=== PATIENT | female | born 1960 | race Caucasian/White ===

== ENCOUNTER 2017-10-12 13:09 | Emergency (ER) | payer BC ==
[2017-10-12 14:12] VITALS: BP 125/81
--- NOTE | 2017-10-12 14:51 | UC ---
Knee Pain HPI - HPI Summary HPI Summary: 57 y/o female presents to the urgent care c/o Left knee pain around the medial aspect s/p bending yesterday at 1500Pm. Pt report she was helping her grandson w/ her shoe and bent and when she she stood up she felt a "pop" and pain was elicited. Pt applied ice, and took 600mg PO of Ibuprofen PO to alleviate symptoms. Pt has not taking anything today for pain. She is walking w/ limping. Pt denies Hx of injury to her left knee, calf pain, numbness or tingling sensation, abdominal pain, SOB, chest pain, N/v/D - History of Current Complaint Chief Complaint: UCLowerExtremity Stated Complaint: KNEE INJURY Time Seen by Provider: 10/12/17 14:49 Hx Obtained From: Patient ?: No - menopausal Onset/Duration: Sudden Onset, Lasting Days - 1 day, Still Present, Worse Since - today Severity Initially: Moderate Severity Currently: Moderate Pain Intensity: 8 - movement Pain Scale Used: 0-10 Numeric Character: Sharp - w/ movement Aggravating Factor(s): Movement, Weight Bearing, Prolonged Standing, Stairs Alleviating Factor(s): Rest, Cold, OTC Meds Associated Signs And Symptoms: Positive: Swelling - medial aspect. Negative: Bruising, Fever, Weakness, Numbness, Tingling Able to Bear Weight: Yes - Risk Factors Septic Arthritis Risk Factor: Negative Gout Risk Factor: Negative - Allergies/Home Medications Allergies/Adverse Reactions: Allergies Allergy/AdvReac Type Severity Reaction Status Date / Time metronidazole [From Flagyl] Allergy See Comment Verified 10/12/17 14:14 PMH/Surg Hx/FS Hx/Imm Hx Previously Healthy: Yes - Pt denies PMHX - Surgical History Surgical History: Yes Surgery Procedure, Year, and Place: 1979, 1983, 1986 csections,. 2001; Broken RIGHT arm; repair. R wrist surgery - Family History Known Family History: Positive: None - Pt denies FMHX - Social History Occupation: Employed Full-time Lives: With Family Alcohol Use: Weekly Substance Use Type: None Smoking Status (MU): Never Smoked Tobacco Amount Used/How Often: TRIED MAYBE 1 CIGARETTE Have You Smoked in the Last Year: No Review of Systems Constitutional: Negative Skin: Negative Eyes: Negative ENT: Negative Respiratory: Negative Cardiovascular: Negative Gastrointestinal: Negative Genitourinary: Negative Motor: Negative Neurovascular: Negative Musculoskeletal: Decreased ROM - left knee, Other: - left knee pain and swelling s/p injury Neurological: Negative Psychological: Negative Is Patient Immunocompromised?: No All Other Systems Reviewed And Are Negative: Yes Physical Exam - Summary Physical Exam Summary: Vital Signs Reviewed: Yes General: well developed, well nourished female sitting in the examining table w/ o any apparent distress Eyes: Positive: Conjunctiva Clear - PERRLA, EOMI, fundi grossly normal ENT: Positive: Normal ENT inspection, Hearing grossly normal, Pharynx normal, TMs normal Neck: Positive: Supple, Nontender, No Lymphadenopathy Respiratory: Positive: Chest nontender, Lungs clear, Normal breath sounds, No respiratory distress Cardiovascular: Positive: RRR, No Murmur, Pulses Normal, Brisk Capillary Refill Abdomen Description: Positive: Nontender, No Organomegaly, Soft. Negative: CVA Tenderness (R), CVA Tenderness (L) Bowel Sounds: Positive: Present Musculoskeletal: Positive: Strength Intact, No Edema, LF Knee: Pt is able to bear weight and ambulate with limping. No surface trauma, mild soft tissue swelling over the medial aspect of the left knee, no obvious effusion. No overlying erythema or warmth. The L knee is without obvious asymmetry or deformity when compared with the R knee. Decreased ROM of LF knee due to pain. No tenderness to palpation of the patella, no effusion or ballottement. Point tenderness over the infrapatellar tendon. Point tenderness over the medial joint line, No tenderness over lateral tibial plateaus. No tenderness over the proximal fibular head, No tenderness, fullness or mass of the popliteal fossa. No quadriceps tenderness. No laxity of the ACL. PCL, MCL, or LCL. no collateral ligament laxity to valgus or varus stress. Negative Yaz/Drawer sign. Negative Taty. Distal motor and neurovascular status intact. Neurological Exam: Normal Psychological Exam: Normal Skin Exam: Normal Triage Information Reviewed: Yes Vital Signs: Initial Vital Signs Temp 99.4 F 10/12/17 14:07 Pulse 66 10/12/17 14:07 Resp 16 10/12/17 14:07 BP 125/81 10/12/17 14:07 Pulse Ox 100 10/12/17 14:07 Knee Pain Course/Dx - Course Course Of Treatment: 57 y/o female presents to the urgent care c/o Left knee pain around the medial aspect s/p bending yesterday at 1500Pm. Pt report she was helping her grandson w/ her shoe and bent and when she she stood up she felt a "pop" and pain was elicited. Pt applied ice, and took 600mg PO of Ibuprofen PO to alleviate symptoms. Pt has not taking anything today for pain. She is walking w/ limping. Pt denies Hx of injury to her left knee, calf pain, numbness or tingling sensation, abdominal pain, SOB, chest pain, N/V/D. Hx obtained. LF knee X-ray ordered. Impression:No acute osseous injury. Pt's knee immobilized w/ knee immobilizer for 1 week. Pt Advised RICE. Avoid strenuous exercise or standing for long period of time. Advised if not improvement of symptoms to f/u with Orthopedic Dr Douglas or PCP in 1 week for further evaluation and treatment. PT understood and agreed with D/C instructions.Pt left the clinic hemodynamically stable, A&OX3. - Differential Dx/Diagnosis Differential Diagnosis/HQI/PQRI: Contusion, DVT, Patellofemoral Syndrome, Sprain , Strain, Tendonitis Provider Diagnoses: 1- Acute left knee pain s/p injury Discharge - Sign-Out/Discharge Documenting (check all that apply): Discharge/Admit/Transfer - D/C home - Discharge Plan Condition: Stable Disposition: HOME Prescriptions: Naproxen TAB* [Naprosyn 250 mg TAB*] 250 mg PO Q8H PRN #30 tab PRN Reason: Pain Patient Education Materials: Knee Sprain (ED) Forms: *Work Release Referrals: Jamee Douglas MD [Medical Doctor] - 1 Week Lulu Cruz MD [Primary Care Provider] - Additional Instructions: 1-Please take medications as directed to alleviate pain and swelling. 2-Please apply ice, keep your knee immobilized with the splint. 3- Please f/u with Orthopedic Dr Douglas or your PCP in 1 week is not improvement of symptoms for further evaluation and treatment. - Billing Disposition and Condition Condition: STABLE Disposition: Home
[2017-10-12] MEDS ORDERED: Ibuprofen TAB* 400 MG PO ONE (15:01)
--- NOTE | 2017-10-12 15:34 | RAD ---
INDICATION: Medial left knee pain after hearing a "pop" COMPARISON: None TECHNIQUE: 4 view radiograph of the left knee. FINDINGS: The visualized bones are well-corticated and properly aligned. The joint spaces are properly maintained. There is no radiographic evidence of joint effusion. There is no acute fracture, dislocation or other focal bony abnormality. IMPRESSION: Normal knee radiograph as described above. If the patient's symptoms persist, follow-up imaging is recommended.
== END 2017-10-12 15:50 | disposition home or self-care (01) ==
LOC: UCEAST 13:09
DX: M25.562 Pain in left knee (principal); Z88.1 Allergy status to other antibiotic agents
CPT/HCPCS: 99213; A9270-GY; G0463

== ENCOUNTER 2017-10-16 07:46 | Emergency (ER) | payer BC ==
[2017-10-16 07:55] VITALS: BP 134/60
--- NOTE | 2017-10-16 08:36 | UC ---
Knee Pain HPI - HPI Summary HPI Summary: PATIENT SPRAINED HER KNEE 4 DAYS AGO. WAS GIVEN A WORK NOTE TO RETURN TO WORK ON 10/19. SHE STATES HER KNEE PAIN HAS COMPLETELY RESOLVED AND SHE IS READY TO RETURN TO WORK. PATIENT IS HERE FOR A RETURN TO WORK NOTE. - History of Current Complaint Chief Complaint: UCLowerExtremity Stated Complaint: KNEE RECHECK Time Seen by Provider: 10/16/17 08:06 Hx Obtained From: Patient Onset/Duration: Sudden Onset, Resolved Severity Initially: Moderate Severity Currently: None Pain Intensity: 0 Pain Scale Used: 0-10 Numeric Associated Signs And Symptoms: Positive: Negative - Allergies/Home Medications Allergies/Adverse Reactions: Allergies Allergy/AdvReac Type Severity Reaction Status Date / Time metronidazole [From Flagyl] Allergy See Comment Verified 10/16/17 07:55 Home Medications: Home Medications Levocetirizine Dihydrochloride [Xyzal] 5 mg PO DAILY 10/16/17 [History Confirmed 10/16/17] PMH/Surg Hx/FS Hx/Imm Hx - Additional Past Medical History Additional PMH: ALLERGIES - Surgical History Surgical History: Yes Surgery Procedure, Year, and Place: 1979, 1983, 1986 csections,. 2001; Broken RIGHT arm; repair. R wrist surgery - Family History Known Family History: Positive: None - Pt denies FMHX - Social History Alcohol Use: Weekly Substance Use Type: None Smoking Status (MU): Never Smoked Tobacco Amount Used/How Often: TRIED MAYBE 1 CIGARETTE Have You Smoked in the Last Year: No Review of Systems Constitutional: Negative Skin: Negative Respiratory: Negative Cardiovascular: Negative Gastrointestinal: Negative Musculoskeletal: Negative All Other Systems Reviewed And Are Negative: Yes Physical Exam Triage Information Reviewed: Yes Appearance: Well-Appearing, No Pain Distress, Well-Nourished Vital Signs: Initial Vital Signs Temp 98.6 F 10/16/17 07:48 Pulse 66 10/16/17 07:48 Resp 16 10/16/17 07:48 BP 134/60 10/16/17 07:48 Pulse Ox 97 10/16/17 07:48 Vital Signs Reviewed: Yes Eyes: Positive: Conjunctiva Clear ENT: Positive: Hearing grossly normal Neck: Positive: Supple Respiratory: Positive: No respiratory distress, No accessory muscle use Cardiovascular: Positive: Pulses Normal Abdomen Description: Positive: Soft Musculoskeletal: Positive: ROM Intact, No Edema, Other: - NO JOINT LINE TENDERNESS OR TENDERNESS OVER ANY BONY PROMINENCES. MCL AND LCL INTACT TO STRESS TESTING. NEG LACHMANS. NEG DRAWERS SIGNS. NEG MCMURRAYS. NEG PATELLAR APPREHENSION TEST. NO TENDERNESS OVER PATELLAR LIGAMENT OR QUADRICEPS TENDON. DECREASED ROM (FLEXION). Neurological: Positive: Alert Psychological: Positive: Age Appropriate Behavior Skin: Negative: rashes Knee Pain Course/Dx - Differential Dx/Diagnosis Provider Diagnoses: LEFT KNEE PAIN - RESOLVED Discharge - Sign-Out/Discharge Documenting (check all that apply): Discharge/Admit/Transfer - Discharge Plan Condition: Stable Disposition: HOME Forms: *Gen. Provider Communication Referrals: Lulu Cruz MD [Primary Care Provider] - If Needed Additional Instructions: Your knee exam is normal today. Note provided stating you can return to work with no restrictions. - Billing Disposition and Condition Condition: STABLE Disposition: Home
== END 2017-10-16 08:35 | disposition home or self-care (01) ==
LOC: UCEAST 07:46
DX: M25.562 Pain in left knee (principal)
CPT/HCPCS: 99211; G0463

== ENCOUNTER 2018-04-01 18:54 | Emergency (ER) | payer BC ==
[2018-04-01 19:05] VITALS: BP 141/79
--- NOTE | 2018-04-01 19:22 | UC ---
Ear Complaint HPI - HPI Summary HPI Summary: 57-year-old woman comes in to clinic today with a chief complaint of right ear pain. This been going on for one week. She has chronic allergies with swelling in her ear canals and occasionally she'll get a skin infection. Usually they drain and heal themselves. Patient reports that's what this feels like it did drain but he continues to hurt. No decreased hearing. No runny nose no sore throat no cough or chest congestion. 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 2001; Broken RIGHT arm; repair. R wrist surgery, elbow repair - Family History Known Family History: Positive: None - Pt denies FMHX - Social History Alcohol Use: Weekly Substance Use Type: None Smoking Status (MU): Never Smoked Tobacco Amount Used/How Often: TRIED MAYBE 1 CIGARETTE Have You Smoked in the Last Year: No Review of Systems All Other Systems Reviewed And Are Negative: Yes Constitutional: Positive: Negative Skin: Positive: Other - SEE HPI Eyes: Positive: Negative ENT: Positive: Ear Ache Respiratory: Positive: Negative Cardiovascular: Positive: Negative Gastrointestinal: Positive: Negative Motor: Positive: Negative Neurovascular: Positive: Negative Musculoskeletal: Positive: Negative Neurological: Positive: Negative Psychological: Positive: Negative Is Patient Immunocompromised?: No Physical Exam Triage Information Reviewed: Yes Appearance: Well-Appearing, No Pain Distress, Well-Nourished Vital Signs: Initial Vital Signs Temp 98.7 F 04/01/18 18:59 Pulse 79 04/01/18 18:59 Resp 16 04/01/18 18:59 BP 141/79 04/01/18 18:59 Pulse Ox 97 04/01/18 18:59 Vital Signs Reviewed: Yes Eye Exam: Normal Eyes: Positive: Conjunctiva Clear ENT: Positive: Pharynx normal, TMs normal, Other - Right ear canal has some dried blood. There is some erythema.. Negative: Pharyngeal erythema, Nasal congestion, Nasal drainage Neck exam: Normal Neck: Positive: Supple Respiratory: Positive: Lungs clear, Normal breath sounds, No respiratory distress Cardiovascular: Positive: RRR Musculoskeletal Exam: Normal Musculoskeletal: Positive: Strength Intact, ROM Intact Neurological Exam: Normal Neurological: Positive: Alert, Muscle Tone Normal Psychological Exam: Normal Psychological: Positive: Age Appropriate Behavior Skin Exam: Normal Ear Complaint Course/Dx - Differential Dx/Diagnosis Provider Diagnosis: Otitis externa of right ear Discharge - Sign-Out/Discharge Documenting (check all that apply): Patient Departure All imaging exams completed and their final reports reviewed: No Studies - Discharge Plan Condition: Stable Disposition: HOME Prescriptions: Amoxicillin/Clavulanate TAB* [Augmentin TAB 875*] 875 mg PO BID #20 tab Neomyc/Polym/HC 1% OTIC SUSP* [Cortisporin Otic Susp 1%*] 4 drop RIGHT EAR QID # 1 btl Patient Education Materials: Otitis Externa (ED) Referrals: Lulu Cruz MD [Primary Care Provider] - Additional Instructions: FOLLOW UP WITH YOUR DOCTOR IF NOT COMPLETELY IMPROVED. GET RECHECKED FOR ANY WORSENING OF YOUR CONDITION OR QUESTIONS OR CONCERNS. - Billing Disposition and Condition Condition: STABLE Disposition: Home
== END 2018-04-01 19:45 | disposition home or self-care (01) ==
LOC: UCEAST 18:54
DX: H60.91 Unspecified otitis externa, right ear (principal); Z88.0 Allergy status to penicillin
CPT/HCPCS: 99212; G0463